=== PATIENT | male | born 1950 | race Two or more races ===

== ENCOUNTER 2016-05-04 17:43 | Emergency (ER) | payer SELFPAY ==
[2016-05-04] MEDS ORDERED: NS 0.9% 1000 ML* 1,000 ML IV ONE (18:10)
[2016-05-04] MEDS ORDERED: Thiamine IV* 100 MG, Folic Acid IV* 1 MG, Multiple Vitamin IV ADULT* 10 ML in NS 0.9% 1... IV ONE (18:10)
--- NOTE | 2016-05-04 18:32 | RAD ---
INDICATION: Chest pain COMPARISON: January 27, 2016 TECHNIQUE: An AP portable view obtained at 1815 hours is submitted. FINDINGS: Bones/Soft Tissues: There are no acute bony findings. Cardiomediastinal: The cardiomediastinal silhouette is normal. Lungs: There are no infiltrates. Pleura: There are no pleural effusions. Other: None IMPRESSION: NO ACTIVE DISEASE
[2016-05-04 18:45] LABS: Hematocrit 46 % (42-52); Hemoglobin 15.8 g/dl (14.0-18.0); Mean Corpuscular HGB Conc 34 g/dl (31-36); Mean Corpuscular Hemoglobin 31 pg (27-31); Mean Corpuscular Volume 90 fL (80-94); Mean Platelet Volume 7 um3 (7.4-10.4); Red Blood Count 5.14 10^6/ul (4.0-5.4); Red Cell Distribution Width 14 % (10.5-15); White Blood Count 10.6 10^3/ul (3.5-10.8)
[2016-05-04 19:00] LABS: Ammonia 57 mol/L (16-53)
[2016-05-04 19:01] LABS: Albumin 3.8 g/dL (3.2-5.2); C Reactive Protein 7.34 mg/L (< 5.00); Calcium 8.6 mg/dL (8.6-10.3); EGFR Non-African American 96.4 (>60); Globulin 3.5 g/dL (2-4); Magnesium 1.9 mg/dL (1.9-2.7); Potassium 3.3 mmol/L (3.5-5.0); Total Bilirubin 0.6 mg/dL (0.2-1.0); Total Protein 7.3 g/dL (6.4-8.9)
[2016-05-04 19:03] LABS: Troponin I 0.01 ng/mL (<0.04)
[2016-05-04 19:05] LABS: B Type Natriuretic Peptide 26 pg/mL
[2016-05-04 19:33] LABS: TSH (Thyroid Stimulating Horm) 0.81 mcIU/mL (0.34-5.60)
--- NOTE | 2016-05-04 21:57 | ED ---
Lul Gonzalez Michael, scribed for Vargas Hill MD on 05/04/16 at 1819 . HPI Chest Pain - HPI Summary HPI Summary: 65 y/o male was BIBA to the ED presenting with left sided CP that worsened three days ago. The pt describes the CP as sharp and scales the pain an 8 out of 10 on a pain severity scale. The CP is reproducible upon palpation and aggravated with deep breathes. He also c/o a productive cough producing yellow sputum, nausea, and epigastric abd pain. The pt denies fever, chills, and bilateral LE pain. The PMHx is significant for [place]. He reports smoking 3 packs of cigarettes per day and drinks alcohol everyday. He was seen in the ED on and was dx with CP with unclear etiology. - History of Current Complaint Chief Complaint: EDChestPainROMI Time Seen by Provider: 05/04/16 17:53 Hx Obtained From: Patient, EMS, Medical Records Onset/Duration: Started Days Ago, Still Present Timing: Constant Initial Severity: Moderate Current Severity: Moderate Pain Intensity: 8 Pain Scale Used: 0-10 Numeric Chest Pain Location: Discrete at: - left sided CP Character: Sharp/Stabbing Aggravating Factor(s): Deep Breaths, Other: - palpation Alleviating Factor(s): Nothing Associated Signs and Symptoms: Positive: Negative - bilateral LE pain, Chest Pain, Nausea, Productive Cough, Abdominal Pain. Negative: Fever, Chills - Allergy/Home Medications Allergies/Adverse Reactions: Allergies Allergy/AdvReac Type Severity Reaction Status Date / Time Aspirin Allergy Intermediate Hives Verified 04/19/13 19:09 Penicillins [PCN] Allergy Difficulty Verified 04/19/13 19:09 Breathing PMH/Surg Hx/FS Hx/Imm Hx Endocrine/Hematology History: Denies: Hx Anticoagulant Therapy, Hx Diabetes Cardiovascular History: Reports: Hx Hypertension, Hx Myocardial Infarction - x4 Respiratory History: Reports: Hx Asthma, Hx Chronic Bronchitis GI History: Reports: Hx Gall Bladder Disease - cholecystectomy History: Denies: Hx Renal Disease Sensory History: Reports: Hx Contacts or Glasses Opthamlomology History: Reports: Hx Contacts or Glasses Neurological History: Reports: Hx Seizures Psychiatric History: Reports: Hx Substance Abuse - alcoholism/tobacco - Surgical History Surgery Procedure, Year, and Place: Cholecystectomy Infectious Disease History: Unable to Obtain/Confirm Infectious Disease History: Denies: Traveled Outside the [place] in Last 30 Days - Family History Known Family History: Positive: None, Unknown, Other - unspecified CA for mother Negative: Cardiac Disease, Hypertension, Diabetes - Social History Occupation: Unemployed Lives: Alone Alcohol Use: Daily Alcohol Amount: drank today Hx Substance Use: No Substance Use Type: Reports: None Hx Tobacco Use: Yes Smoking Status (MU): Heavy Every Day Tobacco Smoker Type: Cigarettes Amount Used/How Often: 1 pk/day Review of Systems Negative: Fever, Chills Positive: Chest Pain Positive: Cough Positive: Abdominal Pain, Nausea All Other Systems Reviewed And Are Negative: Yes Physical Exam Triage Information Reviewed: Yes Vital Signs On Initial Exam: Initial Vitals Temp Pulse Resp BP Pulse Ox 98.5 F 83 18 115/66 93 05/04/16 17:47 05/04/16 17:47 05/04/16 17:47 05/04/16 17:47 05/04/16 17:47 Vital Signs Reviewed: Yes Appearance: Positive: Well-Appearing - smells like alcohol, No Pain Distress Skin: Positive: Warm, Skin Color Reflects Adequate Perfusion, Dry Head/Face: Positive: Normal Head/Face Inspection Eyes: Positive: EOMI, GARO ENT: Positive: Normal ENT inspection Neck: Positive: Supple, Nontender Respiratory/Lung Sounds: Positive: Clear to Auscultation, Breath Sounds Present Cardiovascular: Positive: RRR Abdomen Description: Positive: Nontender, Soft, Other: - ventral hernia Bowel Sounds: Positive: Present Musculoskeletal: Positive: Other - tender left chest to palpation Neurological: Positive: Normal, Sensory/Motor Intact, Alert, Oriented to Person Place, Time Psychiatric: Positive: Affect/Mood Appropriate Diagnostics - Vital Signs Vital Signs Temp Pulse Resp BP Pulse Ox 05/04/16 17:47 98.5 F 83 18 115/66 93 - Laboratory Lab Results: Lab Results 05/04/16 05/04/16 05/04/16 Range/Units 18:35 18:35 18:35 WBC 10.6 (3.5-10.8) 10^3/ul RBC 5.14 (4.0-5.4) 10^6/ul Hgb 15.8 (14.0-18.0) g/dl Hct 46 (42-52) % MCV 90 (80-94) fL MCH 31 (27-31) pg MCHC 34 (31-36) g/dl RDW 14 (10.5-15) % Plt Count 219 (150-450) 10^3/ul MPV 7 L (7.4-10.4) um3 Neut % (Auto) 58.2 (38-83) % Lymph % (Auto) 23.8 L (25-47) % [place] % (Auto) 11.5 H (1-9) % Eos % (Auto) 5.3 (0-6) % Baso % (Auto) 1.2 (0-2) % Absolute Neuts (auto) 6.2 (1.5-7.7) 10^3/ul Absolute Lymphs (auto) 2.5 (1.0-4.8) 10^3/ul Absolute Monos (auto) 1.2 H (0-0.8) 10^3/ul Absolute Eos (auto) 0.6 (0-0.6) 10^3/ul Absolute Basos (auto) 0.1 (0-0.2) 10^3/ul Absolute Nucleated RBC 0.01 10^3/ul Nucleated RBC % 0.1 INR (Anticoag Therapy) 0.90 (0.89-1.11) APTT 33.1 (26.0-36.3) seconds D-Dimer, Quantitative < 200 (Less Than 230) ng/mL Sodium 135 (133-145) mmol/L Potassium 3.3 L (3.5-5.0) mmol/L Chloride 98 L (101-111) mmol/L Carbon Dioxide 28 (22-32) mmol/L Anion Gap 9 (2-11) mmol/L BUN 8 (6-24) mg/dL Creatinine 0.80 (0.67-1.17) mg/dL Est GFR ( Amer) 124.0 (>60) Est GFR (Non-Af Amer) 96.4 (>60) BUN/Creatinine Ratio 10.0 (8-20) Glucose 116 H (70-100) mg/dL Lactic Acid (0.5-2.0) mmol/L Calcium 8.6 (8.6-10.3) mg/dL Magnesium 1.9 (1.9-2.7) mg/dL Total Bilirubin 0.60 (0.2-1.0) mg/dL AST 93 H (13-39) U/L ALT 80 H (7-52) U/L Alkaline Phosphatase 75 (34-104) U/L Ammonia (16-53) mol/L Total Creatine Kinase 344 H (10-223) U/L CK-MB (CK-2) 7.7 H (0.6-6.3) ng/mL Troponin I 0.01 (<0.04) ng/mL C-Reactive Protein 7.34 H (< 5.00) mg/L B-Natriuretic Peptide ( - 100) pg/mL Total Protein 7.3 (6.4-8.9) g/dL Albumin 3.8 (3.2-5.2) g/dL Globulin 3.5 (2-4) g/dL Albumin/Globulin Ratio 1.1 (1-3) Lipase 25 (11.0-82.0) U/L TSH 0.81 (0.34-5.60) mcIU/mL Serum Alcohol 286 H (<10) mg/dL 05/04/16 05/04/16 Range/Units 18:35 18:35 WBC (3.5-10.8) 10^3/ul RBC (4.0-5.4) 10^6/ul Hgb (14.0-18.0) g/dl Hct (42-52) % MCV (80-94) fL MCH (27-31) pg MCHC (31-36) g/dl RDW (10.5-15) % Plt Count (150-450) 10^3/ul MPV (7.4-10.4) um3 Neut % (Auto) (38-83) % Lymph % (Auto) (25-47) % [place] % (Auto) (1-9) % Eos % (Auto) (0-6) % Baso % (Auto) (0-2) % Absolute Neuts (auto) (1.5-7.7) 10^3/ul Absolute Lymphs (auto) (1.0-4.8) 10^3/ul Absolute Monos (auto) (0-0.8) 10^3/ul Absolute Eos (auto) (0-0.6) 10^3/ul Absolute Basos (auto) (0-0.2) 10^3/ul Absolute Nucleated RBC 10^3/ul Nucleated RBC % INR (Anticoag Therapy) (0.89-1.11) APTT (26.0-36.3) seconds D-Dimer, Quantitative (Less Than 230) ng/mL Sodium (133-145) mmol/L Potassium (3.5-5.0) mmol/L Chloride (101-111) mmol/L Carbon Dioxide (22-32) mmol/L Anion Gap (2-11) mmol/L BUN (6-24) mg/dL Creatinine (0.67-1.17) mg/dL Est GFR ( Amer) (>60) Est GFR (Non-Af Amer) (>60) BUN/Creatinine Ratio (8-20) Glucose (70-100) mg/dL Lactic Acid 1.7 (0.5-2.0) mmol/L Calcium (8.6-10.3) mg/dL Magnesium (1.9-2.7) mg/dL Total Bilirubin (0.2-1.0) mg/dL AST (13-39) U/L ALT (7-52) U/L Alkaline Phosphatase (34-104) U/L Ammonia 57 H (16-53) mol/L Total Creatine Kinase (10-223) U/L CK-MB (CK-2) (0.6-6.3) ng/mL Troponin I (<0.04) ng/mL C-Reactive Protein (< 5.00) mg/L B-Natriuretic Peptide 26 ( - 100) pg/mL Total Protein (6.4-8.9) g/dL Albumin (3.2-5.2) g/dL Globulin (2-4) g/dL Albumin/Globulin Ratio (1-3) Lipase (11.0-82.0) U/L TSH (0.34-5.60) mcIU/mL Serum Alcohol (<10) mg/dL Result Diagrams: 05/04/16 18:35 05/04/16 18:35 Lab Statement: Any lab studies that have been ordered have been reviewed, and results considered in the medical decision making process. - Radiology CXR Xray Interpretation: No Acute Changes Radiology Interpretation Completed By: Radiologist - EKG EKG 4677 EKG Rhythm: Sinus Rhythm - 83 bpm Ectopy: None EKG Interpretation: minimal ST elevation in anterior leads Chest Pain Course/Dx - Course Course Of Treatment: Consulted Dr. Montes (Hospitalist) at 2148-discussed pt's labs, CXR, and negative stress test in the fall of 2015. Repeat Troponin is underway at 2129. If troponin is negative and pt's serum alcohol is normal he will be discharged home. Assessment/Plan: NORMAL STRESS TEST 01/22. AT SHIFT CHANGE, THE PLAN TO TO CHECK A 3 AND 6 HOUR TROPONIN. IF THESE ARE NORMAL, PATIENT WILL BE DISCHARGED FROM THE ED. - Diagnoses Provider Diagnoses: Chest pain Discharge - Discharge Plan Condition: Stable Disposition: HOME Patient Education Materials: Chest Pain (ED) Referrals: No Primary Care Phys,NOPCP [Primary Care Provider] - [facility] [place] [facility] [Outside] Additional Instructions: FOLLOW UP WITH YOUR DOCTOR. RETURN TO THE EMERGENCY DEPARTMENT FOR ANY WORSENING OF YOUR CONDITION; PAIN, SHORTNESS OF BREATH, YOU FEEL ILL OR QUESTIONS OR CONCERNS. The documentation as recorded by the Lul cisneros Michael accurately reflects the service I personally performed and the decisions made by me, Vargas Hill MD.
--- NOTE | 2016-05-05 02:18 | ED ---
Katlin Gonzalez Erika, scribed for Martina Villaseñor MD on 05/05/16 at 0131 . Progress - Progress Note Progress Note: Patient signed out from Dr. Hill at shift change. Three hour troponin is 0.01. Unchanged from first troponin. Repeat EKG at 00:46 shows NSR at [address] elevation. No Q waves. No PVCs. Six hour troponin is 0.03. Course/Dx - Diagnoses Provider Diagnoses: Chest pain The documentation as recorded by the Katlin cisneros Erika accurately reflects the service I personally performed and the decisions made by , Martina Villaseñor MD.
[2016-05-05 03:03] VITALS: BP 133/73
== END 2016-05-05 03:03 | disposition home or self-care (01) ==
LOC: EDBD → ED 17:43
DX: R07.9 Chest pain, unspecified (principal); R05 Cough; R11.0 Nausea; F17.210 Nicotine dependence, cigarettes, uncomplicated
CPT/HCPCS: 36415; 71010; 80053; 80320; 82140; 82550; 82553; 83605; 83690; 83735; 83880; 84443; 84484; 85025; 85379; 85610; 85730; 86140; 93005; 96365; 99283; G0480; J3411

== ENCOUNTER 2016-05-08 17:55 | Emergency (ER) | payer SELFPAY ==
[2016-05-08 18:11] VITALS: BP 151/92
[2016-05-08 18:56] LABS: Hematocrit 47 % (42-52); Hemoglobin 15.9 g/dl (14.0-18.0); Mean Corpuscular HGB Conc 34 g/dl (31-36); Mean Corpuscular Hemoglobin 30 pg (27-31); Mean Corpuscular Volume 90 fL (80-94); Mean Platelet Volume 7 um3 (7.4-10.4); Red Blood Count 5.24 10^6/ul (4.0-5.4); Red Cell Distribution Width 15 % (10.5-15); White Blood Count 9.6 10^3/ul (3.5-10.8)
[2016-05-08 18:58] LABS: Add Diff/Slide Review? Slide Review Added; Comments Flag Yes
[2016-05-08 19:12] LABS: BUN/Creatinine Ratio 12.1 (8-20); C Reactive Protein 5.2 mg/L (< 5.00); EGFR African American 154.8 (>60); EGFR Non-African American 120.4 (>60); Globulin 3.7 g/dL (2-4); Potassium 3.7 mmol/L (3.5-5.0); Total Bilirubin 0.6 mg/dL (0.2-1.0); Total Protein 7.7 g/dL (6.4-8.9)
[2016-05-08 19:15] LABS: Troponin I 0.01 ng/mL (<0.04)
--- NOTE | 2016-05-08 19:27 | RAD ---
Indication: Abdominal pain and distention. Alcohol abuse. Shortness of breath at rest. Tobacco use. Cardiac and respiratory disease. Comparison: May 04, 2016 Technique: Sitting AP and lateral chest views. Report: Elevated lung volumes. Clear lungs and pleural spaces. Upper normal heart size. Unremarkable central pulmonary vasculature and mediastinal contours. Negative for free air beneath the diaphragm. IMPRESSION: Stigmata of probable chronic obstructive pulmonary disease. No acute cardiopulmonary process evident.
--- NOTE | 2016-05-08 20:16 | RAD ---
INDICATION: RIGHT flank pain. Alcohol abuse. Post cholecystectomy. COMPARISON: January 04, 2016 CT. TECHNIQUE: Multidetector CT images were obtained from the lung bases to the ischial tuberosities. Evaluation of the viscera is limited without IV contrast. Multiplanar reformation. REPORT: Limited images through the inferior thorax are remarkable for a small fat-containing RIGHT diaphragmatic hernia without gross change. Negative for pleural or pericardial effusions. Post cholecystectomy. Decreased density of the liver relative to the spleen consistent with fatty infiltration. The liver is upper normal in size. No focal hepatic lesions evident within limits of noncontrast CT. Negative for biliary dilatation. Unremarkable pancreas and spleen. Negative for CT abnormality of the upper GI, small bowel, infra cecal appendix. Redundant sigmoid colon with mild diverticulosis without findings of diverticulitis. Negative for ascites, free air, hernias. Normal adrenal glands. Negative for urolithiasis or hydronephrosis. No focal renal lesions evident. Mild LEFT greater than RIGHT perinephric fat stranding similar to the prior exam of doubtful clinical significance. Unremarkable ureters and distended urinary bladder. Enlarged prostate. Symmetric seminal vesicles. Calcifications at the penis most consistent with calcified fibrous plaques/peyronie disease. Negative for lymphadenopathy. Mild calcific plaque of normal diameter abdominal aorta and iliac arteries. Partial physiologic distention of the IVC. Negative for suspicious osseous lesions. IMPRESSION: 1. Post cholecystectomy. 2. Fatty infiltration of the liver. 3. Normal appendix documented. 4. Mild sigmoid colon diverticulosis without findings of diverticulitis. 5. Negative for obstructive uropathy. 6. Negative for ascites.
[2016-05-08] MEDS ORDERED: Thiamine IV* 100 MG, Folic Acid IV* 1 MG, Multiple Vitamin IV ADULT* 10 ML in NS 0.9% 1... IV ONE (21:28)
[2016-05-08] MEDS ORDERED: Famotidine IV* 10 MG/ML 2 ML (20 mg) IV SLOW PU ONE (21:38)
--- NOTE | 2016-05-09 05:48 | ED ---
Progress - Progress Note Progress Note: pt rested well ok to go home Course/Dx - Diagnoses Provider Diagnoses: Alcohol intoxication, Abdominal pain
--- NOTE | 2016-05-09 11:18 | ED ---
Rj Gonzalez Adam, scribed for Maldonado Sparks MD on 05/08/16 at 1913 . Abdominal Pain/Male - HPI Summary HPI Summary: Pt is a 65 year old male presenting with abdominal pain. He states that the pain set on earlier today and is diffuse "all over" his abdomen. He vomited earlier today and has had dark brown watery diarrhea 3x today (no blood). He states that he has been drinking all day today. He has a Hx of EtOH abuse and heavy tobacco use. PMHx of [place] x4, HTN, COPD, and seizures. Surgical Hx of cholecystectomy. FMHx of CAD. - History of Current Complaint Chief Complaint: EDAbdPain Stated Complaint: ABD PAIN Time Seen by Provider: 05/08/16 19:00 Hx Obtained From: Patient Onset/Duration: Gradual Onset, Lasting Hours, Still Present Timing: Constant Severity Initially: Moderate Severity Currently: Moderate Pain Intensity: 9 Pain Scale Used: 0-10 Numeric Location: Diffuse Radiates: No Aggravating Factor(s): Nothing Alleviating Factor(s): Nothing Associated Signs And Symptoms: Positive: Vomiting, Diarrhea - Allergies/Home Medications Allergies/Adverse Reactions: Allergies Allergy/AdvReac Type Severity Reaction Status Date / Time Aspirin Allergy Intermediate Hives Verified 04/19/13 19:09 Penicillins [PCN] Allergy Difficulty Verified 04/19/13 19:09 Breathing PMH/Surg Hx/FS Hx/Imm Hx Endocrine/Hematology History: Denies: Hx Anticoagulant Therapy, Hx Diabetes Cardiovascular History: Reports: Hx Hypertension, Hx Myocardial Infarction - x4 Denies: Hx Angina, Hx Coronary Artery Disease, Hx Hypercholesterolemia, Hx Valvular Heart Disease Respiratory History: Reports: Hx Asthma, Hx Chronic Bronchitis, Hx Chronic Obstructive Pulmonary Disease (COPD) GI History: Reports: Hx Gall Bladder Disease - cholecystectomy History: Denies: Hx Renal Disease Sensory History: Reports: Hx Contacts or Glasses Opthamlomology History: Reports: Hx Contacts or Glasses Neurological History: Reports: Hx Seizures Psychiatric History: Reports: Hx Substance Abuse - alcoholism/tobacco - Surgical History Surgery Procedure, Year, and Place: Cholecystectomy Infectious Disease History: No Infectious Disease History: Denies: Hx Clostridium Difficile, Hx Hepatitis, Hx Human Immunodeficiency Virus (HIV), Hx of Known/Suspected MRSA, Hx Shingles, Hx Tuberculosis, History Other Infectious Disease, Traveled Outside the [place] in Last 30 Days - Family History Known Family History: Positive: Cardiac Disease - CAD, Other - unspecified CA for mother Negative: Hypertension, Diabetes - Social History Occupation: Unemployed Lives: Alone Alcohol Use: Daily Alcohol Amount: "More than 20 beers a day" Hx of ETOH abuse Hx Substance Use: No Substance Use Type: Reports: None Hx Tobacco Use: Yes Smoking Status (MU): Heavy Every Day Tobacco Smoker Type: Cigarettes Amount Used/How Often: 1 pk/day Review of Systems Negative: Fever Positive: Abdominal Pain, Vomiting, Diarrhea, Nausea All Other Systems Reviewed And Are Negative: Yes Physical Exam - Summary Physical Exam Summary: VITAL SIGNS: Reviewed. GENERAL: Patient is a well developed and nourished male who is lying comfortable in the stretcher. Patient is not in any acute respiratory distress. Psotive alcohol in his breath. HEAD AND FACE: Normocephalic and atraumatic. EYES: PERRLA, EOMI x 2, No injected conjunctiva. EARS: Hearing grossly intact. Ear canals and tympanic membranes are WNL. MOUTH: Oropharynx within normal limits. NECK: Supple, trachea is midline, no adenopathy, no JVD. CHEST: Symmetric, no tenderness at palpation LUNGS: Clear to auscultation bilaterally. No wheezing or crackles. CVS: RRR,, S1 and S2 present, no murmurs or gallops appreciated. ABDOMEN: Soft, Positive diffuse tenderness No signs of distention. Positive bowel sounds. No rebound no guarding, and no masses palpated. No abdominal bruit or pulsations. No hernias detected EXTREMITIES: FROM in all major joints, no edema, no cyanosis or clubbing. NEURO: Alert and oriented x 3. No acute neurological deficits. Speech is normal. SKIN: Dry and warm Triage Information Reviewed: Yes Vital Signs On Initial Exam: Initial Vitals Temp Pulse Resp BP Pulse Ox 98 F 73 20 151/92 97 05/08/16 18:05 05/08/16 18:05 05/08/16 18:05 05/08/16 18:05 05/08/16 18:05 Vital Signs Reviewed: Yes - Matt Coma Scale Coma Scale Total: 15 Diagnostics - Vital Signs Vital Signs Temp Pulse Resp BP Pulse Ox 05/08/16 18:05 98 F 73 20 151/92 97 - Laboratory Lab Results: Lab Results 05/08/16 Range/Units 18:40 WBC 9.6 (3.5-10.8) 10^3/ul RBC 5.24 (4.0-5.4) 10^6/ul Hgb 15.9 (14.0-18.0) g/dl Hct 47 (42-52) % MCV 90 (80-94) fL MCH 30 (27-31) pg MCHC 34 (31-36) g/dl RDW 15 (10.5-15) % Plt Count 219 (150-450) 10^3/ul MPV 7 L (7.4-10.4) um3 Neut % (Auto) 50.8 (38-83) % Lymph % (Auto) 29.0 (25-47) % [place] % (Auto) 10.7 H (1-9) % Eos % (Auto) 9.3 H (0-6) % Baso % (Auto) 0.2 (0-2) % Absolute Neuts (auto) 4.9 (1.5-7.7) 10^3/ul Absolute Lymphs (auto) 2.8 (1.0-4.8) 10^3/ul Absolute Monos (auto) 1.0 H (0-0.8) 10^3/ul Absolute Eos (auto) 0.9 H (0-0.6) 10^3/ul Absolute Basos (auto) 0 (0-0.2) 10^3/ul Absolute Nucleated RBC 0.01 10^3/ul Nucleated RBC % 0.1 Result Diagrams: 05/08/16 18:40 05/08/16 18:40 Lab Statement: Any lab studies that have been ordered have been reviewed, and results considered in the medical decision making process. - Radiology CXR Radiology Interpretation Completed By: Radiologist - IMPRESSION: Stigmata of probable chronic obstructive pulmonary disease. No acute cardiopulmonary process evident. - CT A/P CT Interpretation Completed By: Radiologist - IMPRESSION: 1. Post cholecystectomy. 2. Fatty infiltration of the liver. 3. Normal appendix documented. 4. Mild sigmoid colon diverticulosis without findings of diverticulitis. 5. Negative for obstructive uropathy. 6. Negative for ascites. - EKG 20:08 Cardiac Rate: NL - 79 BPM EKG Rhythm: Sinus Rhythm - Normal EKG Interpretation: No ST elevations - Additional Comments Diagnostic Additional Comments: Troponin I - 0.01 Serum Alcohol - 278 Abdominal Pain Fem Course/Dx - Course Course Of Treatment: Pt is a 65 year old male presenting with abdominal pain. He states that the pain set on earlier today and is diffuse "all over" his abdomen. He vomited earlier today and has had dark brown watery diarrhea 3x today (no blood). He states that he has been drinking all day today. He has a Hx of EtOH abuse and heavy tobacco use. PMHx of [place] x4, HTN, COPD, and seizures. Surgical Hx of cholecystectomy. FMHx of CAD. Assessment/Plan: BW is WNL except for creatinine of 0.66. AST 97, ALT 77. Total creatinine kinase is 277. CRP is 5.20. Serum alcohol is 278. CXR is read as stigmata for COPD with no acute cardiopulmonary disease. Pt complained of some abdominal pain. Therefore I did an abdominal CT without any acute process. The rest of the report as above. He was given Pepcid for the abominal pain. Seeing as the pt is with alcohol intoxication, the pt will be signed out to Dr. Villaseñor for follow-up, reassessment, and discharge when the pt is sober and with legal serum alcohol level. The pt is hemodynamically stable and A&Ox3. - Diagnoses Differential Diagnosis/HQI/PQRI: Constipation, Peptic Ulcer Disease Provider Diagnoses: Alcohol intoxication, Abdominal pain Discharge - Discharge Plan Condition: Stable Disposition: OTHER Discharge Disposition Comment: Pending serum alcohol. Patient Education Materials: Alcohol Intoxication (ED), Abdominal Pain (ED) Referrals: [facility] [place] [facility] [place] [Outside] Additional Instructions: Follow up with [facility] [place] [facility]. The documentation as recorded by the Rj cisneros Adam accurately reflects the service I personally performed and the decisions made by me, Maldonado Sparks MD.
== END 2016-05-09 06:05 ==
LOC: EDBD → ED 17:55
DX: F10.129 Alcohol abuse with intoxication, unspecified (principal); R10.9 Unspecified abdominal pain
CPT/HCPCS: 36415; 71020; 74176; 80053; 80320; 82550; 82553; 83605; 83880; 84484; 85025; 85730; 86140; 87040; 93005; 96374; 99284; G0480; J3411

== ENCOUNTER 2016-06-11 16:53 | Emergency (ER) | payer SELFPAY ==
[2016-06-11] MEDS ORDERED: Thiamine IV* 100 MG, Folic Acid IV* 1 MG, Multiple Vitamin IV ADULT* 10 ML in NS 0.9% 1... IV ONE (17:28)
[2016-06-11 17:39] LABS: Hematocrit 50 % (42-52); Hemoglobin 16.7 g/dl (14.0-18.0); Mean Corpuscular HGB Conc 33 g/dl (31-36); Mean Corpuscular Hemoglobin 31 pg (27-31); Mean Corpuscular Volume 93 fL (80-94); Mean Platelet Volume 8 um3 (7.4-10.4); Red Blood Count 5.39 10^6/ul (4.0-5.4); Red Cell Distribution Width 16 % (10.5-15); White Blood Count 9.3 10^3/ul (3.5-10.8)
--- NOTE | 2016-06-11 17:47 | RAD ---
INDICATION: Chest pain COMPARISON: Chest x-ray dated May 08, 2016 TECHNIQUE: Single AP portable view of the chest was obtained. FINDINGS: Image quality is compromised due to the relative inferiority of a portable chest x-ray. The heart and mediastinum exhibit normal size and contour. The lungs are grossly clear. There is no evidence of a large pleural effusion. Visualized bones are normal for the patient's age. IMPRESSION: No radiographic evidence for acute cardiopulmonary abnormality on this portable chest x-ray.
[2016-06-11 17:51] LABS: Albumin 4.5 g/dL (3.2-5.2); BUN/Creatinine Ratio 7.5 (8-20); EGFR African American 104.2 (>60); Globulin 3.5 g/dL (2-4); Magnesium 2.2 mg/dL (1.9-2.7); Potassium 3.7 mmol/L (3.5-5.0); Total Bilirubin 0.6 mg/dL (0.2-1.0)
[2016-06-11 17:53] LABS: Troponin I 0.01 ng/mL (<0.04)
[2016-06-11 18:39] LABS: TSH (Thyroid Stimulating Horm) 0.38 mcIU/mL (0.34-5.60)
[2016-06-12 00:54] VITALS: BP 118/81
--- NOTE | 2016-06-12 07:29 | ED ---
Jerry Gonzalez Billy, scribed for Maldonado Sparks MD on 06/11/16 at 1726 . HPI Chest Pain - HPI Summary HPI Summary: Patient is a 65 year-old male coming to [facility] for evaluation of left anterior chest pain since approximately 0900 this morning. Patient states that the pain began soon after consuming EtOH. Pain is nonradiating. Denies any other symptoms such as SOB, nausea, vomiting, diaphoresis, or dizziness. He is frequently seen in the ED with similar symptoms and presentation. - History of Current Complaint Chief Complaint: EDChestPainROMI Time Seen by Provider: 06/11/16 17:12 Hx Obtained From: Patient Onset/Duration: Started Hours Ago Time of Onset: 09:00 Timing: Constant Initial Severity: Moderate Current Severity: Moderate Pain Intensity: 10 Pain Scale Used: 0-10 Numeric Chest Pain Location: Left Anterior Chest Pain Radiates: No Aggravating Factor(s): Nothing Alleviating Factor(s): Nothing Associated Signs and Symptoms: Positive: Chest Pain. Negative: Dizziness, Shortness of Breath, Diaphoresis, Nausea, Vomiting - Additional Pertinent History Primary Care Physician: [id number] - Allergy/Home Medications Allergies/Adverse Reactions: Allergies Allergy/AdvReac Type Severity Reaction Status Date / Time Aspirin Allergy Intermediate Hives Verified 04/19/13 19:09 Penicillins [PCN] Allergy Difficulty Verified 04/19/13 19:09 Breathing PMH/Surg Hx/FS Hx/Imm Hx Endocrine/Hematology History: Denies: Hx Anticoagulant Therapy, Hx Diabetes Cardiovascular History: Reports: Hx Hypertension, Hx Myocardial Infarction - x4 Denies: Hx Angina, Hx Coronary Artery Disease, Hx Hypercholesterolemia, Hx Valvular Heart Disease Respiratory History: Reports: Hx Asthma, Hx Chronic Bronchitis, Hx Chronic Obstructive Pulmonary Disease (COPD) GI History: Reports: Hx Gall Bladder Disease - cholecystectomy History: Denies: Hx Renal Disease Sensory History: Reports: Hx Contacts or Glasses Opthamlomology History: Reports: Hx Contacts or Glasses Neurological History: Reports: Hx Seizures Psychiatric History: Reports: Hx Substance Abuse - alcoholism/tobacco - Surgical History Surgery Procedure, Year, and Place: Cholecystectomy Infectious Disease History: No Infectious Disease History: Denies: Hx Clostridium Difficile, Hx Hepatitis, Hx Human Immunodeficiency Virus (HIV), Hx of Known/Suspected MRSA, Hx Shingles, Hx Tuberculosis, History Other Infectious Disease, Traveled Outside the [place] in Last 30 Days - Family History Known Family History: Positive: Cardiac Disease - CAD, Other - unspecified CA for mother Negative: Hypertension, Diabetes - Social History Alcohol Use: Daily Alcohol Amount: "More than 20 beers a day" Hx of ETOH abuse Hx Substance Use: No Substance Use Type: Reports: None Hx Tobacco Use: Yes Smoking Status (MU): Heavy Every Day Tobacco Smoker Type: Cigarettes Amount Used/How Often: 1 pk/day Review of Systems Negative: Skin Diaphoresis Positive: Chest Pain Negative: Shortness Of Breath Negative: Vomiting, Nausea Neurological: Other - EtOH All Other Systems Reviewed And Are Negative: Yes Physical Exam - Summary Physical Exam Summary: VITAL SIGNS: Reviewed. GENERAL: Patient is a well developed and nourished male who is lying comfortable in the stretcher. Patient is not in any acute respiratory distress. Poor hygiene. EtOH smelled on his breath. HEAD AND FACE: Normocephalic EYES: PERRLA, EOMI x 2. EARS: Hearing grossly intact. MOUTH: Oropharynx within normal limits. NECK: Supple, trachea is midline, no adenopathy, no JVD, no carotid bruit. CHEST: Symmetric, no tenderness at palpation LUNGS: Clear to auscultation bilaterally. No wheezing or crackles. CVS: Regular rate and rhythm, S1 and S2 present, no murmurs or gallops appreciated. ABDOMEN: Soft, non-tender. Bowel sounds are normal. No abdominal abnormal pulsations. EXTREMITIES: Full ROM in all major joints, no edema, no cyanosis or clubbing. NEURO: Alert and oriented x 3. No acute neurological deficits. Speech is normal and follows commands. SKIN: Dry and warm Triage Information Reviewed: Yes Vital Signs On Initial Exam: Initial Vitals Temp Pulse Resp BP Pulse Ox 97.3 F 81 18 149/79 98 06/11/16 16:56 06/11/16 16:56 06/11/16 16:56 06/11/16 16:56 06/11/16 16:56 Vital Signs Reviewed: Yes - Matt Coma Scale Coma Scale Total: 15 Diagnostics - Vital Signs Vital Signs Temp Pulse Resp BP Pulse Ox 06/11/16 17:02 79 17 149/91 91 06/11/16 16:58 97.3 F 76 18 159/103 100 06/11/16 16:56 97.3 F 81 18 149/79 98 - Laboratory Lab Results: Lab Results 06/11/16 06/11/16 06/11/16 Range/Units 17:10 17:10 17:10 WBC 9.3 (3.5-10.8) 10^3/ul RBC 5.39 (4.0-5.4) 10^6/ul Hgb 16.7 (14.0-18.0) g/dl Hct 50 (42-52) % MCV 93 (80-94) fL MCH 31 (27-31) pg MCHC 33 (31-36) g/dl RDW 16 H (10.5-15) % Plt Count 252 (150-450) 10^3/ul MPV 8 (7.4-10.4) um3 Neut % (Auto) 29.4 L (38-83) % Lymph % (Auto) 41.8 (25-47) % [place] % (Auto) 9.0 (1-9) % Eos % (Auto) 18.4 H (0-6) % Baso % (Auto) 1.4 (0-2) % Absolute Neuts (auto) 2.7 (1.5-7.7) 10^3/ul Absolute Lymphs (auto) 3.9 (1.0-4.8) 10^3/ul Absolute Monos (auto) 0.8 (0-0.8) 10^3/ul Absolute Eos (auto) 1.7 H (0-0.6) 10^3/ul Absolute Basos (auto) 0.1 (0-0.2) 10^3/ul Absolute Nucleated RBC 0.01 10^3/ul Nucleated RBC % 0.1 APTT 33.7 (26.0-36.3) seconds Sodium 138 (133-145) mmol/L Potassium 3.7 (3.5-5.0) mmol/L Chloride 103 (101-111) mmol/L Carbon Dioxide 30 (22-32) mmol/L Anion Gap 5 (2-11) mmol/L BUN 7 (6-24) mg/dL Creatinine 0.93 (0.67-1.17) mg/dL Est GFR ( Amer) 104.2 (>60) Est GFR (Non-Af Amer) 81.0 (>60) BUN/Creatinine Ratio 7.5 L (8-20) Glucose 106 H (70-100) mg/dL Lactic Acid (0.5-2.0) mmol/L Calcium 9.0 (8.6-10.3) mg/dL Magnesium 2.2 (1.9-2.7) mg/dL Total Bilirubin 0.60 (0.2-1.0) mg/dL AST 106 H (13-39) U/L ALT 147 H (7-52) U/L Alkaline Phosphatase 76 (34-104) U/L Total Creatine Kinase 97 (10-223) U/L CK-MB (CK-2) 3.4 (0.6-6.3) ng/mL Troponin I 0.01 (<0.04) ng/mL B-Natriuretic Peptide ( - 100) pg/mL Total Protein 8.0 (6.4-8.9) g/dL Albumin 4.5 (3.2-5.2) g/dL Globulin 3.5 (2-4) g/dL Albumin/Globulin Ratio 1.3 (1-3) TSH 0.38 (0.34-5.60) mcIU/mL Serum Alcohol 267 H (<10) mg/dL 06/11/16 06/11/16 06/11/16 Range/Units 17:10 17:10 22:50 WBC (3.5-10.8) 10^3/ul RBC (4.0-5.4) 10^6/ul Hgb (14.0-18.0) g/dl Hct (42-52) % MCV (80-94) fL MCH (27-31) pg MCHC (31-36) g/dl RDW (10.5-15) % Plt Count (150-450) 10^3/ul MPV (7.4-10.4) um3 Neut % (Auto) (38-83) % Lymph % (Auto) (25-47) % [place] % (Auto) (1-9) % Eos % (Auto) (0-6) % Baso % (Auto) (0-2) % Absolute Neuts (auto) (1.5-7.7) 10^3/ul Absolute Lymphs (auto) (1.0-4.8) 10^3/ul Absolute Monos (auto) (0-0.8) 10^3/ul Absolute Eos (auto) (0-0.6) 10^3/ul Absolute Basos (auto) (0-0.2) 10^3/ul Absolute Nucleated RBC 10^3/ul Nucleated RBC % APTT (26.0-36.3) seconds Sodium (133-145) mmol/L Potassium (3.5-5.0) mmol/L Chloride (101-111) mmol/L Carbon Dioxide (22-32) mmol/L Anion Gap (2-11) mmol/L BUN (6-24) mg/dL Creatinine (0.67-1.17) mg/dL Est GFR ( Amer) (>60) Est GFR (Non-Af Amer) (>60) BUN/Creatinine Ratio (8-20) Glucose (70-100) mg/dL Lactic Acid 1.0 (0.5-2.0) mmol/L Calcium (8.6-10.3) mg/dL Magnesium (1.9-2.7) mg/dL Total Bilirubin (0.2-1.0) mg/dL AST (13-39) U/L ALT (7-52) U/L Alkaline Phosphatase (34-104) U/L Total Creatine Kinase (10-223) U/L CK-MB (CK-2) (0.6-6.3) ng/mL Troponin I 0.01 (<0.04) ng/mL B-Natriuretic Peptide 14 ( - 100) pg/mL Total Protein (6.4-8.9) g/dL Albumin (3.2-5.2) g/dL Globulin (2-4) g/dL Albumin/Globulin Ratio (1-3) TSH (0.34-5.60) mcIU/mL Serum Alcohol (<10) mg/dL Result Diagrams: 06/11/16 17:10 06/11/16 17:10 Lab Statement: Any lab studies that have been ordered have been reviewed, and results considered in the medical decision making process. - Radiology CXR Xray Interpretation: No Acute Changes Radiology Interpretation Completed By: Radiologist - EKG 2651 EKG Interpretation: NSR 75 bpm, no STEMI Chest Pain Course/Dx - Course Assessment/Plan: Patient is a 65 year-old male coming to [facility] for evaluation of left anterior chest pain since approximately 0900 this morning. Patient states that the pain began soon after consuming EtOH. Pain is nonradiating. Denies any other symptoms such as SOB, nausea, vomiting, diaphoresis, or dizziness. He is frequently seen in the ED with similar symptoms and presentation. Bloodwork WNL except for alcohol of 267. Troponin is 0.01. EKG shows no ST elevations. At this point, the patient was given a banana bag. He is hemodynamically stable. He will be signed out to Dr. Sewell,the next ER attending at shift change to follow up the second troponin, and if negative, the patient can be discharged when he is sober with steady gait and normal condition. He is hemodynamically stable, A&Ox3. - Chest Pain Differential Diagnosis/HQI/PQRI: ACS, Angina, Chest Wall, Lower Respiratory Infection, Other: - Alcohol intoxication - Diagnoses Provider Diagnoses: Chest pain, Alcohol intoxication Discharge - Discharge Plan Condition: Stable Disposition: HOME Discharge Disposition Comment: Signed out to Dr. Sewell pending troponin #2 and gait. Patient Education Materials: Chest Pain (ED) Referrals: [facility] [place] [facility] [Outside] No Primary Care Phys,NOPCP [Primary Care Provider] - Additional Instructions: Please return to the ED if you experience new or worsening symptoms. The documentation as recorded by the Jerry csineros Billy accurately reflects the service I personally performed and the decisions made by me, Maldonado Sparks MD.
== END 2016-06-12 00:57 | disposition home or self-care (01) ==
LOC: ED 16:53
DX: F10.129 Alcohol abuse with intoxication, unspecified (principal); R07.9 Chest pain, unspecified; F17.210 Nicotine dependence, cigarettes, uncomplicated
CPT/HCPCS: 36415; 71010; 80053; 80320; 82550; 82553; 83605; 83735; 83880; 84443; 84484; 85025; 85730; 93005; 99283; G0480

== ENCOUNTER 2016-06-16 04:37 | Emergency (ER) | payer OTHER ==
[2016-06-16] MEDS ORDERED: Aspirin Low Dose CHEW TAB* 81 MG PO ONE (04:56)
[2016-06-16 05:38] LABS: Hematocrit 47 % (42-52); Hemoglobin 16.1 g/dl (14.0-18.0); Mean Corpuscular HGB Conc 34 g/dl (31-36); Mean Corpuscular Hemoglobin 32 pg (27-31); Mean Corpuscular Volume 93 fL (80-94); Mean Platelet Volume 8 um3 (7.4-10.4); Red Cell Distribution Width 15 % (10.5-15); White Blood Count 9.5 10^3/ul (3.5-10.8)
[2016-06-16 06:03] LABS: Albumin 4.3 g/dL (3.2-5.2); BUN/Creatinine Ratio 12.3 (8-20); Calcium 9.2 mg/dL (8.6-10.3); EGFR African American 137.8 (>60); EGFR Non-African American 107.2 (>60); Globulin 3.7 g/dL (2-4); Potassium 3.7 mmol/L (3.5-5.0); Total Bilirubin 0.6 mg/dL (0.2-1.0)
[2016-06-16 06:04] LABS: Troponin I 0.01 ng/mL (<0.04)
--- NOTE | 2016-06-16 08:16 | RAD ---
HISTORY: Chest pain COMPARISONS: June 11, 2016 VIEWS:1: Single frontal portable view of the chest at 5:25 AM FINDINGS: LINES AND TUBES: None. CARDIOMEDIASTINAL SILHOUETTE: The cardiomediastinal silhouette is normal for portable technique. PLEURA: The costophrenic angles are sharp. No pleural abnormalities are noted. LUNG PARENCHYMA: The lungs are clear. ABDOMEN: The upper abdomen is clear. There is no subphrenic gas. BONES AND SOFT TISSUES: No bone or soft tissue abnormalities are noted. IMPRESSION: NO ACTIVE CARDIOPULMONARY DISEASE.
[2016-06-16 10:19] VITALS: BP 131/67
--- NOTE | 2016-06-16 11:45 | CONSULT ---
Consult Consult: I picked up Mr. Lang at change of shift awaiting a second troponin. It was negative and he C/O a productive cough to me. I will treat him for acute bronchitis.
--- NOTE | 2016-06-16 19:46 | ED ---
Jerry Gonzalez Billy, scribed for Lang Porter MD on 06/16/16 at 0640 . HPI Chest Pain - HPI Summary HPI Summary: Patient is a 65 year-old male coming to the ED for evaluation of left anterior chest pain after having EtOH. Pain was improved with NTG given by EMS. Pain does not radiate. He denies any other symptoms. He has been seen in the ED with similar symptoms and context frequently in the past. - History of Current Complaint Chief Complaint: EDChestPainROMI Time Seen by Provider: 06/16/16 04:57 Hx Obtained From: Patient Onset/Duration: Started Hours Ago Timing: Constant Initial Severity: Moderate Current Severity: Moderate Chest Pain Location: Left Anterior Chest Pain Radiates: No Aggravating Factor(s): Nothing Alleviating Factor(s): Nothing Associated Signs and Symptoms: Positive: Chest Pain - Additional Pertinent History Primary Care Physician: [id number] - Allergy/Home Medications Allergies/Adverse Reactions: Allergies Allergy/AdvReac Type Severity Reaction Status Date / Time Aspirin Allergy Intermediate Hives Verified 04/19/13 19:09 Penicillins [PCN] Allergy Difficulty Verified 04/19/13 19:09 Breathing PMH/Surg Hx/FS Hx/Imm Hx Endocrine/Hematology History: Denies: Hx Anticoagulant Therapy, Hx Diabetes Cardiovascular History: Reports: Hx Hypertension, Hx Myocardial Infarction - x4 Denies: Hx Angina, Hx Coronary Artery Disease, Hx Hypercholesterolemia, Hx Valvular Heart Disease Respiratory History: Reports: Hx Asthma, Hx Chronic Bronchitis, Hx Chronic Obstructive Pulmonary Disease (COPD) GI History: Reports: Hx Gall Bladder Disease - cholecystectomy History: Denies: Hx Renal Disease Sensory History: Reports: Hx Contacts or Glasses Opthamlomology History: Reports: Hx Contacts or Glasses Neurological History: Reports: Hx Seizures Psychiatric History: Reports: Hx Substance Abuse - alcoholism/tobacco - Surgical History Surgery Procedure, Year, and Place: Cholecystectomy Infectious Disease History: No Infectious Disease History: Denies: Hx Clostridium Difficile, Hx Hepatitis, Hx Human Immunodeficiency Virus (HIV), Hx of Known/Suspected MRSA, Hx Shingles, Hx Tuberculosis, History Other Infectious Disease, Traveled Outside the [place] in Last 30 Days - Family History Known Family History: Positive: Cardiac Disease - CAD, Other - unspecified CA for mother Negative: Hypertension, Diabetes - Social History Alcohol Use: Daily Alcohol Amount: "More than 20 beers a day" Hx of ETOH abuse Hx Substance Use: No Substance Use Type: Reports: None Hx Tobacco Use: Yes Smoking Status (MU): Heavy Every Day Tobacco Smoker Type: Cigarettes Amount Used/How Often: 1 pk/day Review of Systems Negative: Fever, Chills Negative: Erythema Negative: Sore Throat Positive: Chest Pain Negative: Shortness Of Breath, Cough Negative: Abdominal Pain, Vomiting, Nausea Negative: Myalgia, Edema Negative: Rash All Other Systems Reviewed And Are Negative: Yes Physical Exam - Summary Physical Exam Summary: Constitutional: Well-developed, Well-nourished, Alert. (-) Distressed Skin: Warm, Dry HENT: Normocephalic; Atraumatic Eyes: Conjunctiva normal Neck: Musculoskeletal ROM normal neck. (-) JVD, (-) Stridor, (-) Tracheal deviation Cardio: Rhythm regular, rate normal, Heart sounds normal; Intact distal pulses; The pedal pulses are 2+ and symmetric. Radial pulses are 2+ and symmetric. (-) Murmur Pulmonary/Chest wall: Effort normal. (-) Respiratory distress, (-) Wheezes, (-) Rales Abd: Soft, (-) Tenderness, (-) Distension, (-) Guarding, (-) Rebound Musculoskeletal: (-) Edema Lymph: (-) Cervical adenopathy Neuro: Alert, Oriented x3 Psych: Mood and affect Normal Triage Information Reviewed: Yes Vital Signs On Initial Exam: Initial Vitals BP 123/69 06/16/16 04:37 Vital Signs Reviewed: Yes - [place] Coma Scale Coma Scale Total: 15 Diagnostics - Vital Signs Vital Signs Temp Pulse Resp BP Pulse Ox 06/16/16 06:00 60 13 131/77 98 06/16/16 05:30 66 16 139/87 99 06/16/16 05:00 64 16 98 06/16/16 04:56 65 17 98 06/16/16 04:44 98.4 F 69 17 123/69 99 06/16/16 04:43 98.4 F 69 17 123/69 99 06/16/16 04:37 123/69 - Laboratory Lab Results: Lab Results 06/16/16 06/16/16 06/16/16 Range/Units 05:25 05:25 05:25 WBC 9.5 (3.5-10.8) 10^3/ul RBC 5.10 (4.0-5.4) 10^6/ul Hgb 16.1 (14.0-18.0) g/dl Hct 47 (42-52) % MCV 93 (80-94) fL MCH 32 H (27-31) pg MCHC 34 (31-36) g/dl RDW 15 (10.5-15) % Plt Count 223 (150-450) 10^3/ul MPV 8 (7.4-10.4) um3 Neut % (Auto) 37.6 L (38-83) % Lymph % (Auto) 32.5 (25-47) % [place] % (Auto) 9.5 H (1-9) % Eos % (Auto) 18.2 H (0-6) % Baso % (Auto) 2.2 H (0-2) % Absolute Neuts (auto) 3.6 (1.5-7.7) 10^3/ul Absolute Lymphs (auto) 3.1 (1.0-4.8) 10^3/ul Absolute Monos (auto) 0.9 H (0-0.8) 10^3/ul Absolute Eos (auto) 1.7 H (0-0.6) 10^3/ul Absolute Basos (auto) 0.2 (0-0.2) 10^3/ul Absolute Nucleated RBC 0 10^3/ul Nucleated RBC % 0 Sodium 135 (133-145) mmol/L Potassium 3.7 (3.5-5.0) mmol/L Chloride 102 (101-111) mmol/L Carbon Dioxide 25 (22-32) mmol/L Anion Gap 8 (2-11) mmol/L BUN 9 (6-24) mg/dL Creatinine 0.73 (0.67-1.17) mg/dL Est GFR ( Amer) 137.8 (>60) Est GFR (Non-Af Amer) 107.2 (>60) BUN/Creatinine Ratio 12.3 (8-20) Glucose 101 H (70-100) mg/dL Lactic Acid 1.2 (0.5-2.0) mmol/L Calcium 9.2 (8.6-10.3) mg/dL Total Bilirubin 0.60 (0.2-1.0) mg/dL AST 97 H (13-39) U/L ALT 115 H (7-52) U/L Alkaline Phosphatase 83 (34-104) U/L Troponin I 0.01 (<0.04) ng/mL Total Protein 8.0 (6.4-8.9) g/dL Albumin 4.3 (3.2-5.2) g/dL Globulin 3.7 (2-4) g/dL Albumin/Globulin Ratio 1.2 (1-3) Result Diagrams: 06/16/16 05:25 06/16/16 05:25 Lab Statement: Any lab studies that have been ordered have been reviewed, and results considered in the medical decision making process. - Radiology CXR Xray Interpretation: No Acute Changes Radiology Interpretation Completed By: Radiologist - EKG 0459 EKG Interpretation: NSR 65 bpm, no STEMI Chest Pain Course/Dx - Course Assessment/Plan: 65 year-old male coming to [facility] [place] of chest pain. CXR shows no active disease. EKG shows NSR with no STEMI. First troponin is 0.00. Patient will be signed out at shift change pending second troponin. - Diagnoses Provider Diagnoses: CHEST PAIN, ACUTE BRONCHITIS Discharge - Discharge Plan Condition: Stable Disposition: HOME Discharge Disposition Comment: Signed out pending repeat troponin. Prescriptions: Clarithromycin TAB* [Biaxin TAB*] 500 mg PO BID #20 tab guaiFENesin/CODIEN 100MG-10MG* [Robitussin AC 100Mg-10Mg*] 5 ml PO Q4H PRN #250 udc MDD 30 PRN Reason: Cough Patient Education Materials: Chest Pain (ED), Acute Bronchitis (ED) Referrals: [facility] [Outside] No Primary Care Phys,NOPCP [Primary Care Provider] - Additional Instructions: Follow up with your Primary Care Physician. Use the [facility] if needed. The documentation as recorded by the Jerry cisneros Billy accurately reflects the service I personally performed and the decisions made by , Lang Porter MD.
== END 2016-06-16 10:18 | disposition home or self-care (01) ==
LOC: ED 04:37
DX: R07.89 Other chest pain (principal); J20.9 Acute bronchitis, unspecified; F17.210 Nicotine dependence, cigarettes, uncomplicated
CPT/HCPCS: 36415; 71010; 80053; 83605; 84484; 85025; 93005; 99283

== ENCOUNTER 2016-07-01 11:43 | Emergency (ER) | payer OTHER ==
[2016-07-01 12:44] LABS: Hematocrit 51 % (42-52); Hemoglobin 16.9 g/dl (14.0-18.0); Mean Corpuscular HGB Conc 34 g/dl (31-36); Mean Corpuscular Hemoglobin 32 pg (27-31); Mean Corpuscular Volume 94 fL (80-94); Mean Platelet Volume 8 um3 (7.4-10.4); Red Blood Count 5.37 10^6/ul (4.0-5.4); Red Cell Distribution Width 15 % (10.5-15); White Blood Count 9.6 10^3/ul (3.5-10.8)
[2016-07-01 13:04] LABS: Troponin I 0.01 ng/mL (<0.04)
--- NOTE | 2016-07-01 13:07 | RAD ---
Indication: Chest pain. Single frontal view of the chest performed at 1230 hours was reviewed. Comparison is made with previous exam dated June 16, 2016. No mediastinal shift is noted. Heart is of normal size and configuration. Lung pandey appear clear. IMPRESSION: NO ACTIVE CARDIOPULMONARY DISEASE IS NOTED.
[2016-07-01 13:13] LABS: Albumin 4.5 g/dL (3.2-5.2); BUN/Creatinine Ratio 10.2 (8-20); Calcium 9.3 mg/dL (8.6-10.3); EGFR African American 111.1 (>60); EGFR Non-African American 86.4 (>60); Globulin 3.7 g/dL (2-4); Total Bilirubin 0.6 mg/dL (0.2-1.0); Total Protein 8.2 g/dL (6.4-8.9)
[2016-07-01] MEDS ORDERED: traMADol TAB* 50 MG PO ONE (18:49)
[2016-07-01 19:21] VITALS: BP 149/93
--- NOTE | 2016-07-25 10:35 | ED ---
Jerry Gonzalez Billy, scribed for Lang Porter MD on 07/01/16 at 1423 . Complex/Multi-Sys Presentation - HPI Summary HPI Summary: Patient is a 65 year-old male coming to [facility] for evaluation of chest pain and cough today. The patient is frequently seen in the ED with similar symptoms. He states that he has not eaten any food in the last 4 days but he has been drinking EtOH. - History Of Current Complaint Chief Complaint: EDGeneral Time Seen by Provider: 07/01/16 12:20 Hx Obtained From: Patient Onset/Duration: Gradual Onset Timing: Constant Severity Currently: Moderate Severity Initially: Moderate Location: Pain At: - left anterior Aggravating Factor(s): none Alleviating Factor(s): none Associated Signs And Symptoms: Positive: Cough, Chest Pain - Allergies/Home Medications Allergies/Adverse Reactions: Allergies Allergy/AdvReac Type Severity Reaction Status Date / Time Aspirin Allergy Intermediate Hives Verified 04/19/13 19:09 Penicillins [PCN] Allergy Difficulty Verified 04/19/13 19:09 Breathing PMH/Surg Hx/FS Hx/Imm Hx Endocrine/Hematology History: Denies: Hx Anticoagulant Therapy, Hx Diabetes Cardiovascular History: Reports: Hx Hypertension, Hx Myocardial Infarction - x4 Denies: Hx Angina, Hx Coronary Artery Disease, Hx Hypercholesterolemia, Hx Valvular Heart Disease Respiratory History: Reports: Hx Asthma, Hx Chronic Bronchitis, Hx Chronic Obstructive Pulmonary Disease (COPD) GI History: Reports: Hx Gall Bladder Disease - cholecystectomy History: Denies: Hx Renal Disease Sensory History: Reports: Hx Contacts or Glasses Opthamlomology History: Reports: Hx Contacts or Glasses Neurological History: Reports: Hx Seizures Psychiatric History: Reports: Hx Substance Abuse - alcoholism/tobacco - Surgical History Surgery Procedure, Year, and Place: Cholecystectomy Infectious Disease History: Denies: Hx Clostridium Difficile, Hx Hepatitis, Hx Human Immunodeficiency Virus (HIV), Hx of Known/Suspected MRSA, Hx Shingles, Hx Tuberculosis, History Other Infectious Disease, Traveled Outside the [place] in Last 30 Days - Family History Known Family History: Positive: Cardiac Disease - CAD, Other - unspecified CA for mother Negative: Hypertension, Diabetes - Social History Alcohol Use: Daily Alcohol Amount: "More than 20 beers a day" Hx of ETOH abuse Hx Substance Use: No Substance Use Type: Reports: None Hx Tobacco Use: Yes Smoking Status (MU): Heavy Every Day Tobacco Smoker Type: Cigarettes Amount Used/How Often: 1 pk/day Review of Systems Negative: Fever, Chills Negative: Erythema Negative: Sore Throat Positive: Chest Pain Positive: Cough. Negative: Shortness Of Breath Negative: Abdominal Pain, Vomiting, Nausea Negative: dysuria, hematuria Negative: Myalgia, Edema Negative: Rash Neurological: Other - EtOH All Other Systems Reviewed And Are Negative: Yes Physical Exam - Summary Physical Exam Summary: Constitutional: Well-developed, Well-nourished, Alert. Unkempt appearance. Poor hygiene. (-) Distressed Skin: Warm, Dry HENT: Normocephalic; Atraumatic Eyes: Conjunctiva normal Neck: Musculoskeletal ROM normal neck. (-) JVD, (-) Stridor, (-) Tracheal deviation Cardio: Rhythm regular, rate normal, Heart sounds normal; Intact distal pulses; The pedal pulses are 2+ and symmetric. Radial pulses are 2+ and symmetric. (-) Murmur Pulmonary/Chest wall: Effort normal. (-) Respiratory distress, (-) Wheezes, (-) Rales Abd: Soft, (-) Tenderness, (-) Distension, (-) Guarding, (-) Rebound Musculoskeletal: (-) Edema Lymph: (-) Cervical adenopathy Neuro: Alert, Oriented x3 Psych: Mood and affect Normal Triage Information Reviewed: Yes Vital Signs On Initial Exam: Initial Vitals Temp Pulse Resp BP Pulse Ox 98.1 F 80 20 146/85 98 07/01/16 12:00 07/01/16 12:00 07/01/16 12:00 07/01/16 12:00 07/01/16 12:00 Vital Signs Reviewed: Yes - Matt Coma Scale Coma Scale Total: 15 Diagnostics - Vital Signs Vital Signs Temp Pulse Resp BP Pulse Ox 07/01/16 12:12 98.4 F 78 20 153/92 98 07/01/16 12:00 98.1 F 80 20 146/85 98 - Laboratory Lab Results: Lab Results 07/01/16 07/01/16 07/01/16 Range/Units 12:31 12:31 12:31 WBC 9.6 (3.5-10.8) 10^3/ul RBC 5.37 (4.0-5.4) 10^6/ul Hgb 16.9 (14.0-18.0) g/dl Hct 51 (42-52) % MCV 94 (80-94) fL MCH 32 H (27-31) pg MCHC 34 (31-36) g/dl RDW 15 (10.5-15) % Plt Count 207 (150-450) 10^3/ul MPV 8 (7.4-10.4) um3 Neut % (Auto) 42.0 (38-83) % Lymph % (Auto) 34.6 (25-47) % [place] % (Auto) 11.1 H (1-9) % Eos % (Auto) 12.1 H (0-6) % Baso % (Auto) 0.2 (0-2) % Absolute Neuts (auto) 4.0 (1.5-7.7) 10^3/ul Absolute Lymphs (auto) 3.3 (1.0-4.8) 10^3/ul Absolute Monos (auto) 1.1 H (0-0.8) 10^3/ul Absolute Eos (auto) 1.2 H (0-0.6) 10^3/ul Absolute Basos (auto) 0 (0-0.2) 10^3/ul Absolute Nucleated RBC 0.01 10^3/ul Nucleated RBC % 0.1 Sodium 137 (133-145) mmol/L Potassium 4.0 (3.5-5.0) mmol/L Chloride 100 L (101-111) mmol/L Carbon Dioxide 30 (22-32) mmol/L Anion Gap 7 (2-11) mmol/L BUN 9 (6-24) mg/dL Creatinine 0.88 (0.67-1.17) mg/dL Est GFR ( Amer) 111.1 (>60) Est GFR (Non-Af Amer) 86.4 (>60) BUN/Creatinine Ratio 10.2 (8-20) Glucose 96 (70-100) mg/dL Lactic Acid 1.3 (0.5-2.0) mmol/L Calcium 9.3 (8.6-10.3) mg/dL Total Bilirubin 0.60 (0.2-1.0) mg/dL AST 101 H (13-39) U/L ALT 96 H (7-52) U/L Alkaline Phosphatase 81 (34-104) U/L Troponin I 0.01 (<0.04) ng/mL Total Protein 8.2 (6.4-8.9) g/dL Albumin 4.5 (3.2-5.2) g/dL Globulin 3.7 (2-4) g/dL Albumin/Globulin Ratio 1.2 (1-3) Serum Alcohol 282 H (<10) mg/dL Result Diagrams: 07/01/16 12:31 07/01/16 12:31 Lab Statement: Any lab studies that have been ordered have been reviewed, and results considered in the medical decision making process. - Radiology CXR Xray Interpretation: No Acute Changes Radiology Interpretation Completed By: Radiologist - EKG 1214 EKG Interpretation: NSR 80 bpm, no STEMI Re-Evaluation - Re-Evaluation First Eval Re-Evaluation Time: 18:40 Change: Improved Comment: Patient to ambulate on oximitry. Second Eval Re-Evaluation Time: 18:49 Comment: Patient complains of leg pain. He will be given Tramadol for the pain, and then walked on oximitry. Complex Multi-Symp Course/Dx Assessment/Plan: Patient stated that he would rather not have stents or surgical intervention in the event of a serious, life-threatening cardiac event. Troponin #1 and #2 were both 0.01. CXR and EKG were unremarkable for acute findings. He was ambulated in the ED on oximitry. He will be discharged home to follow up with PCP. - Diagnoses Provider Diagnoses: Chronic chest pain, Alcohol intoxication Discharge - Discharge Plan Condition: Stable Disposition: HOME Patient Education Materials: Noncardiac Chest Pain (ED), Abuse of Alcohol (ED) Referrals: [facility] [place] PHYSICIAN REFERRAL [Outside] The documentation as recorded by the Jerry cisneros Billy accurately reflects the service I personally performed and the decisions made by , Lang Porter MD.
== END 2016-07-01 19:20 | disposition home or self-care (01) ==
LOC: EDBD → ED 11:43
DX: R07.9 Chest pain, unspecified (principal); G89.29 Other chronic pain; F10.129 Alcohol abuse with intoxication, unspecified; F17.210 Nicotine dependence, cigarettes, uncomplicated; Z88.0 Allergy status to penicillin
CPT/HCPCS: 36415; 71010; 80053; 80320; 83605; 84484; 85025; 99283; A9270-GY; G0480

== ENCOUNTER → 2016-07-24 16:42 | Emergency (ER) | payer OTHER ==
[2016-07-24 16:58] VITALS: BP 136/77
--- NOTE | 2016-07-24 23:13 | ED ---
Chase Gonzalez Alok, scribed for Diogo Pollard MD on 07/24/16 at 1712 . Substance Abuse/Use - HPI Summary HPI Summary: 57M presents to the ED picked up by police [place]. Pt reports he was simply drinking ETOH (40 oz malt liquor x2) and felt sleepy. Pt denies overheating. Pt denies illicit drug use or regular medications. Pt smokes tobacco. Pt is reportedly homelessness and states that sleeping outside contributes to his sleepiness in the day. - History Of Current Complaint Chief Complaint: EDSubstanceAbuse Stated Complaint: HEAT EXPOSURE Time Seen by Provider: 07/24/16 16:52 Hx Obtained From: Patient Onset/Duration of Drug/ETOH Abuse: Hours Severity Initially: Moderate Severity Currently: Moderate Associated Signs And Symptoms: Sleep Disturbance - due to homelessness - Allergies/Home Medications Allergies/Adverse Reactions: Allergies Allergy/AdvReac Type Severity Reaction Status Date / Time Aspirin Allergy Intermediate Hives Verified 04/19/13 19:09 Penicillins [PCN] Allergy Difficulty Verified 04/19/13 19:09 Breathing PMH/Surg Hx/FS Hx/Imm Hx Endocrine/Hematology History: Denies: Hx Anticoagulant Therapy, Hx Diabetes Cardiovascular History: Reports: Hx Hypertension, Hx Myocardial Infarction - x4 Denies: Hx Angina, Hx Coronary Artery Disease, Hx Hypercholesterolemia, Hx Valvular Heart Disease Respiratory History: Reports: Hx Asthma, Hx Chronic Bronchitis, Hx Chronic Obstructive Pulmonary Disease (COPD) GI History: Reports: Hx Gall Bladder Disease - cholecystectomy History: Denies: Hx Renal Disease Sensory History: Reports: Hx Contacts or Glasses Opthamlomology History: Reports: Hx Contacts or Glasses Neurological History: Reports: Hx Seizures Psychiatric History: Reports: Hx Substance Abuse - alcoholism/tobacco - Surgical History Surgery Procedure, Year, and Place: Cholecystectomy Infectious Disease History: No Infectious Disease History: Denies: Hx Clostridium Difficile, Hx Hepatitis, Hx Human Immunodeficiency Virus (HIV), Hx of Known/Suspected MRSA, Hx Shingles, Hx Tuberculosis, History Other Infectious Disease, Traveled Outside the [place] in Last 30 Days - Family History Known Family History: Positive: Cardiac Disease - CAD, Other - unspecified CA for mother Negative: Hypertension, Diabetes - Social History Occupation: Unemployed Alcohol Use: Daily Alcohol Amount: "More than 20 beers a day" Hx of ETOH abuse Hx Substance Use: No Substance Use Type: Reports: None Hx Tobacco Use: Yes Smoking Status (MU): Heavy Every Day Tobacco Smoker Type: Cigarettes Amount Used/How Often: 1 pk/day Review of Systems Negative: Fever Positive: Other - sleepiness All Other Systems Reviewed And Are Negative: Yes Physical Exam Triage Information Reviewed: Yes Vital Signs On Initial Exam: Initial Vitals Temp Pulse Resp BP Pulse Ox 99.3 F 81 17 136/77 95 07/24/16 16:53 07/24/16 16:53 07/24/16 16:53 07/24/16 16:53 07/24/16 16:53 Vital Signs Reviewed: Yes Appearance: Positive: Well-Appearing, No Pain Distress Skin: Positive: Warm, Skin Color Reflects Adequate Perfusion, Dry Head/Face: Positive: Normal Head/Face Inspection Eyes: Positive: Normal ENT: Positive: Normal ENT inspection Neck: Positive: Supple, Nontender Respiratory/Lung Sounds: Positive: Wheezes - sparse both lung pandey Cardiovascular: Positive: RRR Abdomen Description: Positive: Nontender, Soft Bowel Sounds: Positive: Present Musculoskeletal: Positive: Normal Neurological: Positive: Normal Psychiatric: Positive: Normal, Affect/Mood Appropriate - Matt Coma Scale Coma Scale Total: 15 Diagnostics - Vital Signs Vital Signs Temp Pulse Resp BP Pulse Ox 07/24/16 16:57 99.3 F 80 17 136/77 96 07/24/16 16:53 99.3 F 81 17 136/77 95 - Laboratory Lab Statement: Any lab studies that have been ordered have been reviewed, and results considered in the medical decision making process. Course/Dx - Course Course Of Treatment: Mr. Lang ambulated about the department here without difficulty and was clinically sober. - Diagnoses Provider Diagnoses: Alcohol abuse Discharge - Discharge Plan Condition: Stable Disposition: HOME Patient Education Materials: Abuse of Alcohol (ED) Referrals: No Primary Care Phys,NOPCP [Primary Care Provider] - [facility] [place] [facility] [Outside] Additional Instructions: Follow up with a primary care provider The documentation as recorded by the Chase cisneros Alok accurately reflects the service I personally performed and the decisions made by me, Diogo Pollard MD.
== END | disposition home or self-care (01) ==
LOC: EDBD 16:42 → ED 16:42
DX: F10.10 Alcohol abuse, uncomplicated (principal); G47.9 Sleep disorder, unspecified; F17.210 Nicotine dependence, cigarettes, uncomplicated
CPT/HCPCS: 99281